=== PATIENT | female | born 1990 | race Caucasian/White ===

== ENCOUNTER 2016-12-08 06:24 | Emergency (ER) | payer OTHER ==
[~2016-12-08] VITALS: Ht 157.5 cm; Wt 79.2 kg
[~2016-12-08 06:24] MED LIST: ENBRACE HR SOF1 EACH PO; ENDOCET 5-3251 EACH PO; IBUPROFEN800 MG PO; OXYCODONE-APAP1 EACH PO
[2016-12-08 07:55] LABS: INFLUENZA A VIRAL ANTIGEN NEGATIVE; INFLUENZA B VIRAL ANTIGEN NEGATIVE
[2016-12-08 08:22] VITALS: BP 146/76
== END 2016-12-08 08:23 | disposition home or self-care (01) ==
LOC: EME 06:24
PROVIDERS: Physician Assistant
DX: J06.9 Acute upper respiratory infection, unspecified (principal)
CPT/HCPCS: 87502; 87651 90; 99281; 99283